=== PATIENT | male | born 1950 | race Caucasian/White ===

== ENCOUNTER 2020-08-12 08:01 | Outpatient (CLI) | payer MEDICARE, SELFPAY ==
--- NOTE | ~2020-08-12 | XR_ITS ---
EXAMINATION: XR chest 2V EXAM DATE: 08/12/2020 09:49 INDICATION: Prostate cancer. TECHNIQUE: Frontal and lateral projections of the chest obtained and reviewed. There is no prior bubba dy for comparison. FINDINGS: The lungs are clear. There are no pleural effusions. The cardiomediastinal silhouette is within normal limits. There is no pneumothorax suspected. On the lateral projection there is well-circumscribed increased density over a midthoracic vertebral body. This finding has been indicated, marked on the examination for review. IMPRESSION: Possible sclerotic midthoracic bone lesion; recommend CT chest without contrast or bone s can if patient has not already had this as work-up for his prostate cancer. Reviewed, dictated and finalized at location B. T ROOM WORKER IMPRESSION: Possible sclerotic midthoracic bone lesion; recommend CT chest with out contrast or bone scan if patient has not already had this as work-up for hi s prostate cancer.
--- NOTE | 2020-08-12 09:26 | ECG_ITS ---
Measurements Intervals [place] Rate: 49 P: RI: 0 QRS: 49 QRSD: 119 T: -2 QT: 474 QTc: 430 Interpretive Statements SINUS RHYTHM WITH MARKED FIRST DEGREE AV BLOCK BASELINE ARTIFACT- I, III, AVR, AVL INFERIOR INFARCT, AGE INDETERMINATE ABNORMAL ECG Electronically Signed On 08-12-2020 10:24:37 QUARTER LINING SMOOTHER by Keith Altamirano D.O.
[2020-08-12 10:08] LABS: Basophils Absolute Auto 0.1 K/mm3 (0.0-0.1); Basophils Percent Auto 0.6 % (0.2-1.2); Eosinophils Absolute Auto 0.4 K/mm3 (0-0.3); Eosinophils Percent Auto 5.3 % (0-4.4); Hematocrit 44.9 % (42.0-52.0); Hemoglobin 14.6 g/dL (14.0-18.0); Immature Granulocyte Absolute 0.01 K/mm3 (0.00-0.031); Immature Granulocyte Percent A 0.1 % (0-0.5); Lymphocytes Absolute Auto 2.49 K/mm3 (0.9-3.2); Lymphocytes Percent Auto 31.6 % (18.3-44.2); Mean Corpuscular HGB Conc 32.5 g/dl (32-36); Mean Corpuscular Hemoglobin 30.9 pg (26-34); Mean Corpuscular Volume 95.1 fl (80-100); Mean Platelet Volume 9.7 fl (7.4-10.4); Monocytes Absolute Auto 0.6 K/mm3 (0.1-0.6); Neutrophils Absolute Auto 4.3 K/mm3 (1.3-6.7); Neutrophils Percent Auto 54.4 % (45.5-73.1); Platelet Count Result 180 k/mm3 (150-375); Red Blood Count 4.72 M/mm3 (4.6-6.20); Red Cell Distribution Width 13.9 % (11.5-14.5); White Blood Count 7.9 K/mm3 (4.5-10.0)
[2020-08-12 10:11] LABS: Add Urine Microscopic? NO; Appearance Urine Clear (Clear); Bilirubin Urine Negative (Negative); Blood Urine Negative (Negative); Color Urine Yellow (Yellow); Glucose Urine UA Negative (Negative); Ketones Urine Negative (Negative); Leukocyte Esterase Ur Negative LEU/UL (Negative); Nitrate Urine Negative (Negative); Protein Urine Negative (Negative); Specific Grav Ur 1.014 (1.001-1.035); Urobilinogen Urine Negative mg/dL (<2.0)
[2020-08-12 10:18] LABS: INR 1.4; Prothrombin Time 18.1 Seconds (11.1-14.7)
[2020-08-12 10:19] LABS: Partial Thromboplastin Time 31.4 SECONDS (22.3-36.8)
[2020-08-12 10:24] LABS: Alanine Aminotransferase 13 U/L (4-50); Alkaline Phosphatase 92 U/L (38-126); Anion Gap 2 mmol/L (8-16); Aspartate Amino Transferase 21 U/L (17-59); Bilirubin,Total 0.4 mg/dL (0.2-1.3); Blood Urea Nitrogen 20 mg/dL (9-20); Calcium 9.2 mg/dL (8.4-10.2); Carbon Dioxide 29 mmol/L (22-30); Chloride 106 mmol/L (98-107); Estimated Glomerular Filt Rate 33; Glucose 95 mg/dL (75-110); Potassium 4.3 mmol/L (3.4-5.0); Sodium 137 mmol/L (137-145)
== END 2020-08-12 08:02 | disposition home or self-care (01) ==
LOC: ANHSURGERY 08:06
PROVIDERS: PCP Internal Medicine; Visit Provider Urology
DX: Z01.818 Encounter for other preprocedural examination (principal); C61 Malignant neoplasm of prostate; I25.2 Old myocardial infarction; Z51.81 Encounter for therapeutic drug level monitoring; Z79.899 Other long term (current) drug therapy
CPT/HCPCS: 36415; 71046; 80053; 81003; 85025; 85610; 85730; 86850; 86900; 86901; 93005

== ENCOUNTER → 2020-08-20 00:39 | Outpatient (CLI) | payer MEDICARE, SELFPAY ==
[2020-08-20 19:08] LABS: SARS-CoV-2 RNA PCR Negative
== END ==
PROVIDERS: PCP Internal Medicine; Visit Provider Urology
DX: Z01.812 Encounter for preprocedural laboratory examination (principal); Z20.822 Contact with and (suspected) exposure to COVID-19
CPT/HCPCS: C9803; U0003; U0005

== ENCOUNTER 2023-05-18 13:26 | Outpatient (CLI) | payer MEDICARE, SELFPAY ==
--- NOTE | ~2023-05-18 | PE_ITS ---
EXAMINATION: PET skull to mid thigh DATE: 05/18/2023 15:30 INDICATION: Lung mass. TECHNIQUE: Blood glucose level was 99 mg/dL. 10.264 mCi of 18-fluorodeoxyglucose (18-FDG) was adminis tered i.v. Low dose computed tomography (CT) images were acquired from the base of the brain to the p roximal thighs for attenuation correction and anatomic localization. Automated exposure control was e mployed. Dose-length product (DLP) was 836 mGy-cm. Positron emission tomography (PET) images were acq uired in the same distribution. COMPARISON: None FINDINGS: Head/neck: There are no pathologically enlarged lymph nodes. There are changes of right-sided craniot mikayla. Chest: There is mild emphysema. There is an 8.2 x 4.9 cm mass at left hilum with maximum SUV of 16.3. A calcified right lung nodule and calcified right hilar lymph nodes are consistent with old granulom atous disease. No pleural effusion. The heart size is normal. There is a right chest wall pacer with leads in the right atrium and right ventricle. There are coronary artery calcifications. No pericardi al effusion. Abdomen/pelvis/proximal thighs: Calcifications in the liver and spleen are consistent with old granul omatous disease. The gallbladder, pancreas, and left adrenal gland are normal. There is a 20 mm mass in right adrenal gland measuring low-attenuation without increased activity, consistent with an adeno ma. There are cysts in the kidneys measuring up to 3.8 cm on the left. There is a filter in the infer ior vena cava. 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 Stool distends the rectum. Th e prostate is mildly enlarged. There are no pathologically enlarged lymph nodes. There is no free int raperitoneal fluid. There is a comminuted intertrochanteric fracture of proximal left femur with inte rnal fixation. 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 IMPRESSION: 1. 8.2 x 4.6 cm mass in left hilum with maximum SUV of 16.3, consistent with primary bronchogenic car cinoma. 2. 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 Reviewed, dictated and finalized at location A. MOTIVE SPECIALTY TECHNICIAN IMPRESSION: 1. 8.2 x 4.6 cm mass in left hilum with maximum SUV of 16.3, consistent with pr imary bronchogenic carcinoma. 2. 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
[2023-05-18 14:05] LABS: Glucose Point of Care 99 mg/dl (65-105)
== END 2023-05-18 13:27 | disposition home or self-care (01) ==
PROVIDERS: PCP Internal Medicine; Visit Provider Internal Medicine
DX: R91.8 Other nonspecific abnormal finding of lung field (principal); I71.43 Infrarenal abdominal aortic aneurysm, without rupture
CPT/HCPCS: 78815; A9552

== ENCOUNTER 2024-01-13 11:50 | Emergency (ER) | payer MEDICARE, SELFPAY ==
[2024-01-13] VITALS (11 sets, daily range): BP systolic 116–163; BP diastolic 58–98; PULSE 59–60; RESP 14–20; TEMP 36.6–36.7; O2SAT 94–100
--- NOTE | ~2024-01-13 | CT_ITS ---
EXAMINATION: CT brain wo con DATE: 01/13/2024 12:55 INDICATION: Transient left eye vision loss. Prior stroke. TECHNIQUE: Computed tomography (CT) of the head was performed without intravenous contrast. Sagittal and coronal reconstructions were performed. The mA was adjusted according to patient size. Iterative reconstruction technique was employed. The dose-length product was 605.33 mGy-cm. COMPARISON: None FINDINGS: Right frontotemporoparietal craniotomy with a couple regions of encephalomalacia underlying right fro ntal and anterior right temporal lobes which could represent sequela prior infarction, trauma or surg jose. There is a prominent region of decreased density in the white matter of the right occipital lobe and extending anteriorly into the right parietal and posterior right frontal and temporal lobes. The re are regions of loss of gonzalez-white matter differentiation at the right occipital and right parieto- occipital region which could represent additional age-indeterminate infarct. There are however signif icant amounts of preserved gonzalez matter density along the margins of the previous noted region of whit e matter hypodensity which can still be related to infarct but also raises the possibility of other u nderlying etiology such as underlying metastatic disease, primary malignancy or gliosis related to pr ior radiation treatment. The latter would not be considered less likely given the suggestion of some local mass effect with effacement of the sulci. Similarly there is a region of decreased attenuation at the inferior right cerebellar hemisphere without definitive encephalomalacia with similar differen tial. No acute intracranial hemorrhage or abnormal extra axial fluid collection. Ventricles are pedro l and symmetric. No mass/mass effect. Changes of bilateral intraocular lens replacement. The orbits a nd mastoid air cells are normal. There is some mucosal thickening the sinuses along with fluid depend ently layering the bilateral maxillary sinuses and opacifying a few of the bilateral ethmoid air cell s. IMPRESSION: 1. Masslike region of prominent white matter hypodensity in the right occipital, parietal and posteri or frontal and temporal lobes. There appears to be some associated parenchymal swelling and loss with decrease in gonzalez-white matter differentiation relocation of primarily the occipital and posterior pa rietal regions which suggests acute or subacute infarct. There are other significant regions of prese rved overlying gonzalez matter density and interpretation is located by history of prior malignancy and a prior craniotomy which suggests differential for this and the white matter change could include supe rimposed metastatic disease or sequela of prior radiation treatment. Correlate with clinical/surgical history and any prior outside imaging. Could also consider pre and postcontrast brain MRI for furthe r evaluation. 2. Small regions of encephalomalacia in the right frontal and anterior right temporal lobes underlyin g the craniotomy which could represent sequela of prior infarcts, trauma or surgery. Reviewed, dictated and finalized at location A. IMPRESSION: 1. Masslike region of prominent white matter hypodensity in the right occipital , parietal and posterior frontal and temporal lobes. There appears to be some a ssociated parenchymal swelling and loss with decrease in gonzalez-white matter diff erentiation relocation of primarily the occipital and posterior parietal region s which suggests acute or subacute infarct. There are other significant regions of preserved overlying gonzalez matter density and interpretation is located by hi story of prior malignancy and a prior craniotomy which suggests differential fo r this and the white matter change could include superimposed metastatic diseas e
--- NOTE | ~2024-01-13 | XR_ITS ---
XR hip LT 2V w AP pelvis Ordering provider: Mahad Whitaker MD History: . fall 1 wk ago . Comparison: None. FINDINGS: BONES: Left intertrochanteric fracture fixated by stefan and screws. Bilateral AVN of the femoral head. HIP JOINT SPACES: Normal. SACROILIAC JOINT SPACES/LUMBAR SPINE: The sacroiliac joint spaces are normal. Mild degenerative ba es of the visualized lower lumbar spine. PUBIC SYMPHYSIS: Normal. SOFT TISSUES: Normal. IMPRESSION: No acute osseous abnormality pelvis and left hip. Left intertrochanteric fracture with fixation by stefan and screws. Bilateral AVN of the femoral head. Reviewed, dictated and finalized at location A.
--- NOTE | ~2024-01-13 | CT_ITS ---
CTA brain carotid Ordering provider: Mahad Whitaker MD History: . Acute vs subacute infact on non-con. . Comparison: None. Technique: CT angiogram head and neck was performed following timed intravenous injection of contrast . Thin slice axial images and reformatted coronal images were obtained. Three dimensional reformatted images of the brain were also obtained using a [employer] workstation. Radiation reduction technique ut ilized. DLP is 1868.73 mGy-cm. FINDINGS: HEAD: --ANTERIOR AND MIDDLE CEREBRAL ARTERIES AND BRANCHES: Normal caliber and contour. --INTERNAL CAROTID ARTERIES: Mild atheromatous disease but no significant stenosis. No occlusion. --BASILAR ARTERY AND BRANCHES: Normal caliber and contour. No atheromatous disease. --POSTERIOR CEREBRAL ARTERIES: Normal caliber and contour --POSTERIOR COMMUNICATING ARTERIES: Not visualized which is probably related to congenital absence or small size. --ANEURYSM: None visualized. --BRAIN: Present and neck edema is seen in the right frontal area with enhancing masses seen in the r ight occipital lobe measuring 1.9 x 1.7 cm. Another lesion is seen in the right parietal area measuri ng 0.9 x 0.8 cm. Another lesion is seen in the right cerebellar area measuring 1.8 x 1.1 cm. These ar e suggestive of metastatic lesions. Infection cannot be excluded. Clinical correlation advised. --BONES AND SUPERFICIAL SOFT TISSUES: Postoperative changes in the right temporal, frontal and pariet al bones. --PARANASAL SINUSES AND MASTOIDS: Bilateral maxillary and ethmoid sinus disease. NECK: --RIGHT CERVICAL CAROTID SYSTEM: Mild atheromatous disease of the carotid bulb and proximal internal carotid artery without significant stenosis. Percent stenosis per NASCET criteria is 0%. No carotid d issection. Otherwise, no significant atheromatous disease or stenosis of the cervical carotid system. --LEFT CERVICAL CAROTID SYSTEM: Mild atheromatous disease of the carotid bulb and proximal internal c arotid artery without significant stenosis. Percent stenosis per NASCET criteria is 0%. No carotid di ssection. Otherwise, no significant atheromatous disease or stenosis of the cervical carotid system. --VERTEBRAL ARTERIES: Normal caliber and contour. --VISUALIZED AORTIC ARCH AND BRANCHING VESSELS: Mild atheromatous disease but no significant stenosis . --SOFT TISSUES: Pneumonia with possible mass in the left upper lobe. Small caliber of the left internal jugular vein. --CERVICAL SPINE: Age appropriate degenerative changes. IMPRESSION: 1. 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 Vasog enic edema is seen in the right cerebral hemisphere. 2. Normal CTA head and neck. Percent stenosis per NASCET criteria is 3. Highly suggestive mass with pneumonia in the left upper lobe. Further evaluation advised. 4. Small caliber of the left internal jugular vein. Reviewed, dictated and finalized at location A. IMPRESSION: 1. 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 Vasogenic edema is seen in the right cerebral hemisphere. 2. Normal CTA head and neck. Percent stenosis per NASCET criteria is 3. Highly suggestive mass with pneumonia in the left upper lobe. Further evalu ation advised. 4. Small caliber of the left internal jugular vein.
--- NOTE | ~2024-01-13 | XR_ITS ---
XR knee RT 3V Ordering provider: Mahad Whitaker MD History: . fall 1 wk ago . Comparison: None. FINDINGS: BONES: No acute fracture or dislocation. JOINT SPACES: Narrowing of the medial compartment. SOFT TISSUES: Normal. IMPRESSION: No acute osseous abnormality right knee. Moderate osteoarthritic changes. Reviewed, dictated and finalized at location A.
--- NOTE | ~2024-01-13 | XR_ITS ---
XR chest 1V Ordering provider: Mahad Whitaker MD History: 73 years Male with . fall 1 wk ago . Comparison: August 12, 2020 FINDINGS: MEDIASTINUM: The cardiac silhouette is not enlarged. Right bipolar pacemaker. Left Port-A-Cath with t he tip overlying superior vena cava.. LUNGS: No effusions or pneumothorax. Opacification the right lower lobe and left mid and lower zone s uggestive of pneumonia. OTHER: No free air under the diaphragm. IMPRESSION: Bilateral pneumonia. Reviewed, dictated and finalized at location A. IMPRESSION: Bilateral pneumonia.
--- NOTE | 2024-01-13 12:33 | ED.GENADULT ---
HPI - General Adult General Chief complaint: Suspected CVA Stated complaint: seeing shadows Time Seen by Provider: 01/13/24 12:12 History of Present Illness HPI narrative: This is a 73-year-old male with a past medical history including prostate and lung cancer status post chemotherapy in active radiation therapy. Patient also has a history of stroke in the past with residual right-sided hemiparesis. Today patient presents to the emergency room with sudden onset episode of left-sided vision loss he describes a shadow coming into the left lateral visual field. He states it lasted 20 minutes and occurred about 45 minutes prior to arrival but is not spontaneous resolved. He states that about 1 week prior as well as having an abscess in the remote past. He did not seek any medical attention during these visits. He states he has a history of remote brain surgeries but no operative interventions recently. He did have a fall from ground level height was mechanical in nature about 1 week prior he states that his symptoms from that previous weekend before the fall event occurred. Presently he is asymptomatic and does not endorse any headache, vision changes, nausea, vomiting, chest pain, shortness breast, now pain. He was otherwise in his normal state of health. No new trauma. He is complaining of some right-sided knee left-sided hip pain that is chronic for him. Related Data Home Medications Medication Instructions Recorded Confirmed atorvastatin 10 mg tablet 10 mg PO HS 08/12/20 08/12/20 citalopram 20 mg tablet 20 mg PO QAM 08/12/20 08/12/20 folic acid 1 mg tablet 1 mg PO DAILY 08/12/20 08/12/20 pantoprazole 40 mg tablet,delayed 40 mg PO QAM 08/12/20 08/12/20 release phenobarbital 32.4 mg tablet 32.4 mg PO BID 08/12/20 08/12/20 warfarin 5 mg tablet 5 mg PO HS 08/12/20 08/12/20 Allergies Allergy/AdvReac Type Severity Reaction Status Date / Time No Known Allergies Allergy Verified 01/13/24 12:09 Review of Systems Review of Systems: ROS as described above in the HPI and otherwise negative [facility] Past Medical History Medical History (Updated 01/14/24 @ 01:36 by Mahad Whitaker MD) CVA (cerebral vascular accident) Lung cancer Surgical History Surgical History (Updated 01/13/24 @ 13:33 by Mahad Whitaker MD) History of hip replacement Social History Social History Smoking packs per day: 1 Smoking cigarettes per day: 20.0 Years smoked: 50 Smoking pack-years: 50.00 Smoking status: Current every day smoker Alcohol intake: former Alcohol use details: DRANK HEAVILY IN YOUNGER YEARS Substance use: never Living arrangements: alone Spiritual care concerns: No Exam Narrative: GENERAL: [Well-appearing, well-nourished, and in no acute distress.] HEAD: [Normocephalic, atraumatic.] EYES: [PERRLA and EOMI.] Pupils are 3 mm. Extraocular movements are intact, peripheral hunter intact with pupil visual acuity is subjectively per patient ENT: Nares clear, no rhinorrhea or epistaxis. Mucous membranes moist. NECK: Supple. CHEST: [Clear to auscultation. No respiratory distress.] HEART: [Regular rate and rhythm]. No murmur heard. [Normal peripheral pulses.] ABDOMEN: [Soft, nondistended], [nontender], [No rigidity or guarding] EXTREMITIES: Normal range of motion. [No edema.] SKIN: Warm, dry, no rash. NEURO: Chronic left-sided hemiparesis worse in the left upper extremity compared to left upper extremity. Strength 3/5 left upper extremity 4/5 left lower extremity 5/5 in right arm and right leg. No ataxia in the limbs. Extraocular movements full cranial nerves 2-12 are grossly intact. Alert and oriented [x3.] PSYCH: [Normal mood and affect.] Course Vital Signs Vital signs: Vital Signs Temperature 36.6 C 01/13/24 12:00 Pulse Rate 60 01/13/24 12:00 Respiratory Rate 17 01/13/24 12:00 Blood Pressure 128/5
--- NOTE | 2024-01-13 12:34 | ECG_ITS ---
Test Date: 2024-01-13 13:16:31 Measurements Intervals [place] Rate: 60 P: -87 UT: 220 QRS: -74 QRSD: 199 T: 101 QT: 514 QTc: 514 Interpretive Statements ELECTRONIC ATRIAL PACEMAKER ELECTRONIC VENTRIUCLAR PACEMAKER BASELINE ARTIFACT- I, II, AVR, AVL NO FURTHER INTERPRETATION IS POSSIBLE ATYPICAL ECG No previous ECG available for comparison Electronically Signed On 01-13-2024 14:02:21 CDT by Keith Altamirano D.O.
[2024-01-13] MEDS: SODIUM CHLORIDE 0.9% IV 1,000 ML 999 ML IV CONT (13:14)
[2024-01-13 13:22] LABS: Basophils Percent Auto 0.5 % (0.2-1.2); Eosinophils Absolute Auto 0.3 K/mm3 (0-0.3); Eosinophils Percent Auto 4.3 % (0-4.4); Immature Granulocyte Absolute 0.03 K/mm3 (0.00-0.031); Immature Granulocyte Percent A 0.5 % (0-0.5); Lymphocytes Absolute Auto 0.88 K/mm3 (0.9-3.2); Lymphocytes Percent Auto 14.2 % (18.3-44.2); Mean Corpuscular HGB Conc 33.3 g/dl (32-36); Mean Corpuscular Hemoglobin 33.5 pg (26-34); Mean Corpuscular Volume 100.6 fl (80-100); Mean Platelet Volume 8.9 fl (7.4-10.4); Monocytes Absolute Auto 0.5 K/mm3 (0.1-0.6); Monocytes Percent Auto 7.6 % (2.6-8.5); Neutrophils Absolute Auto 4.5 K/mm3 (1.3-6.7); Neutrophils Percent Auto 72.9 % (45.5-73.1); Platelet Count Result 133 k/mm3 (150-375); Red Blood Count 3.58 M/mm3 (4.6-6.20); Red Cell Distribution Width 13.2 % (11.5-14.5); White Blood Count 6.2 K/mm3 (4.5-10.0)
[2024-01-13 13:32] LABS: Alanine Aminotransferase 8 U/L (6-50); Alkaline Phosphatase 123 U/L (38-126); Anion Gap 9 mmol/L (4-12); Aspartate Amino Transferase 18 U/L (17-59); Bilirubin,Total 0.6 mg/dL (0.2-1.3); Blood Urea Nitrogen 21 mg/dL (9-20); Calcium 9.7 mg/dL (8.4-10.2); Carbon Dioxide 27 mmol/L (22-30); Chloride 97 mmol/L (98-107); Estimated CRCL calculation 34 ml/min; Estimated Glomerular Filt Rate 33; Glucose 92 mg/dL (65-110); INR 1.6; Potassium 4.2 mmol/L (3.4-5.0); Prothrombin Time 19.5 Seconds (11.1-14.7); Sodium 133 mmol/L (137-145)
[2024-01-13 13:33] LABS: Partial Thromboplastin Time 40.5 Seconds (22.3-36.8)
[2024-01-13] MEDS: ASPIRIN 325 MG TABLET PO (13:51)
[2024-01-13 14:01] LABS: Troponin I < 0.012 ng/mL (0.000-0.034)
--- NOTE | 2024-01-13 16:21 | ECG_ITS ---
Test Date: 2024-01-13 16:26:48 Measurements Intervals [place] Rate: 60 P: 71 IN: 216 QRS: -74 QRSD: 205 T: 104 QT: 513 QTc: 513 Interpretive Statements ELECTRONIC ATRIAL PACEMAKER ELECTRONIC VENTRICULAR PACEMAKER BASELINE ARTIFACT- I, II, III, AVR, AVL, AVF, V1-V2, V5-V6 NO FURTHER INTERPRETATION IS POSSIBLE ATYPICAL ECG Compared to ECG 01/13/2024 13:16:31 No significant changes Electronically Signed On 01-13-2024 16:56:46 CDT by Keith Altamirano D.O.
--- NOTE | 2024-01-13 16:22 | PC.NURSE ---
sudden onset left side CP, ERP notified and EKG ordered
[2024-01-13] MEDS: MORPHINE SULFATE (*CRX) 4 MG/ML INJ IV PUSH (16:40)
[2024-01-13 17:30] LABS: Troponin I < 0.012 ng/mL (0.000-0.034)
== END 2024-01-13 17:27 | disposition short-term general hospital (02) ==
LOC: ANHED 12:18
PROVIDERS: Emergency Provider Student in an Organized Health Care Education/Training Program; PCP Internal Medicine
DX: C79.31 Secondary malignant neoplasm of brain (principal); C34.92 Malignant neoplasm of unspecified part of left bronchus or lung; C34.91 Malignant neoplasm of unspecified part of right bronchus or lung; I69.351 Hemiplegia and hemiparesis following cerebral infarction affecting right dominant side; H54.62 Unqualified visual loss, left eye, normal vision right eye; F17.210 Nicotine dependence, cigarettes, uncomplicated; Z85.118 Personal history of other malignant neoplasm of bronchus and lung; W19.XXXA Unspecified fall, initial encounter
CPT/HCPCS: 36415; 70450; 70496; 70498; 71045; 73502; 73562; 80053; 84484; 85025; 85610; 85730; 93005; 96361; 96374; 99285; A9270; J2270; J7030; Q9967